=== PATIENT | male | born 1995 | race Caucasian/White ===

== ENCOUNTER 2019-07-05 13:56 | Emergency (ER) | payer OTHER, SELFPAY ==
[2019-07-05 14:06] VITALS: BP 154/90; PULSE 86; RESP 18; TEMP 36.5; O2SAT 97; BMI 21.2
--- NOTE | 2019-07-05 14:11 | DI.RAD.S_ITS ---
PROCEDURE: XR SHOULDER LT MIN 2V INDICATIONS: shoulder injury TECHNIQUE: 3 views of the shoulder were acquired. COMPARISON: None. FINDINGS: Bones: Postoperative changes are present suggesting prior coracoclavicular ligament repair/reconstruction. Orthopedic suture anchors are evident along the superficial margins of the superior distal clavicle and the inferior acromion. There is a fracture evident involving the distal clavicle at the operative site without displacement. No additional acute fractures are evident. No suspicious osseous lesions are present. There is no dislocation. Soft tissues: No suspicious soft tissue calcifications. IMPRESSION: Nondisplaced fracture involving the distal clavicle at the coracoclavicular ligament reconstruction site. Dictated by: Servando Foote M.D. on 07/05/2019 at 13:26 Approved by: Servando Foote M.D. on 07/05/2019 at 13:30
--- NOTE | 2019-07-05 14:32 | ED.UPPEXIN ---
HPI - Extremity Injury (Upper) <MOHSEN Durán - Last Filed: 07/05/19 15:47> General Chief Complaint: Extremity Injury, Upper Stated Complaint: left shoulder hurting Time Seen by Provider: 07/05/19 14:04 Source: patient Mode of arrival: Family Vehicle Limitations: no limitations History of Present Illness HPI narrative: The patient is a 23-year-old male nonsmoker with history of left shoulder surgery presents with chief complaint of left shoulder pain. He states he was skateboarding yesterday and slipped landing directly on his left shoulder. He denies hitting his head, any neck or back pain or other other injury. He took 1 dose of ibuprofen this morning. He states he can move his shoulder, but is painful to do so. He states he has ?buttons in his shoulder from his AC repair. He has not taken anything else for the pain. He denies any other pertinent medical history. He denies any numbness or tingling Review of Systems <MOHSEN Durán - Last Filed: 07/05/19 15:47> Review of Systems Narrative: GENERAL: Denies chills, fatigue, malaise, fever, sweats. HEENT: Denies sinus pain, ear pain, sore throat, difficulty swallowing, dizziness. RESPIRATORY: Denies dyspnea, cough, wheezing, hemoptysis, sputum. CARDIOVASCULAR: Denies chest pain, palpitations, orthopnea, edema, GASTROINTESTINAL: Denies nausea, vomiting, abdominal pain, diarrhea, constipation, melena. : Denies dysuria, frequency, incontinence, hematuria, urinary retention. MUSCULOSKELETAL: See HPI SKIN: Denies rash, skin lesions, or other NEUROLOGIC: Denies weakness, headache, numbness, change in speech, confusion, seizures, incoordination. PSYCHIATRIC: No concerning psychosocial issues. 12 point review of systems is negative except for those stated above Patient History <MOHSEN Durán - Last Filed: 07/05/19 15:47> Social History Smoking Status: Never smoker Smoking Status: Never smoker alcohol intake frequency: a few times a week Substance Use Type: does not use Exam <MOHSEN Durán - Last Filed: 07/05/19 15:47> Narrative Exam Narrative: GENERAL: This is a well-nourished, well-developed patient, in no acute distress HEAD: Atraumatic. Normocephalic. No temporal or scalp tenderness. EYES: Pupils equal round and reactive. Extraocular motions intact. No scleral icterus. No injection or drainage. ENT: Nose without bleeding, purulent drainage or septal hematoma. Throat without erythema, tonsillar hypertrophy or exudate. Uvula midline. Airway patent. NECK: Trachea midline. No JVD or lymphadenopathy. Supple, nontender, no meningeal signs. CARDIOVASCULAR: Regular rate and rhythm s. RESPIRATORY: Clear to auscultation. Breath sounds equal bilaterally. No wheezes, rales, or rhonchi. EXTREMITIES: Pain to palpation left clavicle and generalized pain to palpation left shoulder. Positive radial pulse left hand. Good strength bilateral hands. Cap refill less than 2 seconds left hand. Full range of motion noted all mcclure left shoulder BACK: Nontender CT and L-spine without deformity or crepitance. No flank tenderness. NEURO: AOx3. SKIN: No rash or erythema on visible skin. No laceration or abrasion noted. Surgical scar noted over left clavicle Initial Vital Signs Initial Vital Signs: Vital Signs Temperature 97.7 F 07/05/19 14:06 Pulse Rate 86 07/05/19 14:06 Respiratory Rate 18 07/05/19 14:06 Blood Pressure 154/90 H 07/05/19 14:06 Pulse Oximetry 97 07/05/19 14:06 <Rosa King DO - Last Filed: 07/05/19 15:50> Initial Vital Signs Initial Vital Signs: Vital Signs Temperature 97.7 F 07/05/19 14:06 Pulse Rate 86 07/05/19 14:06 Respiratory Rate 18 07/05/19 14:06 Blood Pressure 154/90 H 07/05/19 14:06 Pulse Oximetry 97 07/05/19 14:06 Procedures <MOHSEN Durán - Last Filed: 07/05/19 15:47> Orthopedic Splinting/Casting Injury #1: Side: left Upper Extremity Injury Location: clavicle Upper Extremity Immobilizer: sling/shoulder immobilizer Post splinting neuro exam: intact Post splinting vascular exam: intact Placed by: Nursing Scores <MOHSEN Durán - Last Filed: 07/05/19 15:47> GCS Bel[place]i coma scale eye opening: Spontaneous [place] coma scale verbal response: Orientated [place] coma scale motor response: Obey commands [place] coma scale total score: 15 Nexus Score for C-Spine Focal Neurologic deficit present: No Midline spinal tenderness present: No Altered level of conciousness present: No Intoxication present: No Distracting Injury Present: No Nexus Criteria for C-spine: 0 Course <MOHSEN Durán - Last Filed: 07/05/19 15:47> Orders Ordered: ED Orders 07/05/19 14:11 XR shoulder LT min 2V Stat Vital Signs Vital signs: Vital Signs - 8 hr 07/05/19 14:06 Temperature 97.7 F Pulse Rate 86 Respiratory Rate 18 Blood Pressure 154/90 H Pulse Oximetry 97 <Rosa King DO - Last Filed: 07/05/19 15:50> Orders Ordered: ED Orders 07/05/19 14:11 XR shoulder LT min 2V Stat Vital Signs Vital signs: Vital Signs - 8 hr 07/05/19 14:06 Temperature 97.7 F Pulse Rate 86 Respiratory Rate 18 Blood Pressure 154/90 H Pulse Oximetry 97 MDM - Extremity Injury (Upper) <MOHSEN Durán - Last Filed: 07/05/19 15:47> Imaging Data Extremity x-ray #1: Radiologist's Impression: [address] [place] [id number] XRay Report Signed Patient: Martell Bishop#: [id number] : 1995Acct:[id number] Age/Sex: 23 / MDate of Service: 07/05/19 Loc: ED Accession Number: [id number] Procedure: XR shoulder LT min 2V Ordering Provider: Rosa Morley PROCEDURE: XR SHOULDER LT MIN 2V INDICATIONS: shoulder injury TECHNIQUE: 3 views of the shoulder were acquired. COMPARISON: None. FINDINGS: Bones: Postoperative changes are present suggesting prior coracoclavicular ligament repair/reconstruction. Orthopedic suture anchors are evident along the superficial margins of the superior distal clavicle and the inferior acromion. There is a fracture evident involving the distal clavicle at the operative site without displacement. No additional acute fractures are evident. No suspicious osseous lesions are present. There is no dislocation. Soft tissues: No suspicious soft tissue calcifications. IMPRESSION: Nondisplaced fracture involving the distal clavicle at the coracoclavicular ligament reconstruction site. Dictated by: Servando Foote M.D. on 07/05/2019 at 13:26 Approved by: Servando Foote M.D. on 07/05/2019 at 13:30 [facility] Narrative Medical decision making narrative: The patient is a 23-year-old male presents with a chief complaint of left shoulder injury after a skateboarding fall yesterday. X-ray indicates a nondisplaced clavicular fracture. I spoke with Dr. Orellana from [facility] who is happy to follow-up with patient. Patient was placed in a sling. He is neurovascularly intact with no tenting of the skin. Patient does not want anything for pain other than Tylenol and Motrin. I discussed at length following up with regular doctor, come back to the emergency department for any acute concerns. Patient has no questions or concerns upon discharge and states understanding of return precautions as well as follow-up care. Discharge Plan Departure Patient Disposition: Home Clinical Impression: Fracture of clavicle Qualifiers: Encounter type: initial encounter Clavicle location: lateral end Fracture type: closed Fracture alignment: nondisplaced Laterality: left Qualified Code(s): S42.035A - Nondisplaced fracture of lateral end of left clavicle, initial encounter for closed fracture Discharge Date/Time: 07/05/19 15:07 Instructions: How to Use a Sling, DI for Clavicle Fracture-Adult, How To Perform RICE (Rest, Ice, Compress, Elevate) Activity Restrictions/Additional Instructions: Thank you for trusting us with your care today I am sorry that you got hurt and I hope you heal well and quickly. Please follow-up with [facility]. I spoke with Dr. Orellana about you today. I have included the contact information in your discharge. Please use [id number] medications as needed and able for pain. Also apply ice. Please come back to the emergency department for any acute concerns such as lack of circulation to your hand. Referrals: [facility] [Provider Group] [facility] [Provider Group] Jaclyn Orellana MD [Physician] -
== END 2019-07-05 15:07 | disposition home or self-care (01) ==
PROVIDERS: Emergency Provider Nurse Practitioner Family
DX: S42.035A Nondisplaced fracture of lateral end of left clavicle, initial encounter for closed fracture (principal); V00.131A Fall from skateboard, initial encounter
CPT/HCPCS: 73030; 99283